=== PATIENT | female | born 1965 | race Caucasian/White ===

== ENCOUNTER 2017-10-21 14:31 | Emergency (ER) | payer OTHER ==
[~2017-10-21 14:31] MED LIST: BENZ100C4 PO; IBU800 PO; LOR5/325 PO; OND4 PO; PER PO; PRED20TA6 PO
[2017-10-21] MEDS ORDERED: methylPREDNIS SUCC 125 MG/2ML IVP ONE (14:40)
[2017-10-21] MEDS ORDERED: FAMOTIDINE(*) 20MG/50ML PREMIX 50 ML IVPB ONE (14:40)
[2017-10-21] MEDS ORDERED: diphenhydrAMINE 50 MG/ML VIAL IVP ONE (14:40)
[2017-10-21] MEDS ORDERED: NS(*) 0.9% 1000 ML BAG 1,000 ML IV ONE (14:40)
--- NOTE | 2017-10-21 14:40 | ER Report ---
History and Physical Time Seen By MD: 14:38 Hx. of Stated Complaint: medication reaction HPI/ROS Patient is a 51-year-old female took a Flexeril tablet approximately an hour prior to arrival began having itching of her head all over body rash at that point she came to the emergency room for help Allergies: Coded Allergies: No Known Drug Allergies (Verified , 10/21/17) Home Meds Active Scripts Diphenhydramine Hcl (BENADRYL) 25 Mg Capsule, 25 MG PO Q6-8H, #30 CAPSULE Prov:DIANNE BUSTAMANTE 10/21/17 Discontinued Reported Medications Benzonatate 100 Mg Cap (TESSALON PERLE 100 MG CAP) 100 Mg Capsule, 100 MG PO TID Y for PRN, #15 CAP TAKE 1 CAPSULE BY MOUTH THREE TIMES A DAY 09/08/14 Discontinued Scripts Prednisone (PREDNISONE) 20 Mg Tablet, 40 MG PO DAILY for 5 Days, #10 TAB Prov:DIANNE BUSTAMANTE 10/21/17 Hydrocodone Bit/Acetaminophen (HYDROCODON-ACETAMINOPHEN 5-325) 1 Each Tablet, 1 EACH PO Q4-6H, #14 Prov:NAHEED GILBERT NP 09/08/14 Prednisone (PREDNISONE) 20 Mg Tablet, 40 MG PO QDAY, #10 TAB-CAP 2 tablets daily until gone. 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 67 Resp 16 B/P (MAP) 124/91 (102) 124/91 146/98 (114) Pulse Ox 95 O2 Delivery Room Air 10/21/17 10/21/17 10/21/17 10/21/17 15:01 15:16 15:30 15:36 Pulse 71 65 58 B/P (MAP) 147/96 (113) Pulse Ox 95 96 96 Intake and Output 10/21/17 10/21/17 10/22/17 15:00 23:00 07:00 Intake Total 50 ml 1000 ml Balance 50 ml 1000 ml Physical Exam General Appearance: The patient is alert, has no immediate need for airway protection and no current signs of toxicity. HEENT Pupils equal and round no injection.throat non reddened, no angioedema Respiratory: Chest is non tender, lungs are clear to auscultation. Cardiac: regular rate and rhythm [ ] Gastrointestinal: Abdomen is soft and non tender, no masses, bowel sounds normal. Musculoskeletal: Neck: Neck is supple and non tender. Extremities have full range of motion and are non tender. Skin: All over red raised body rash with urticaria [DIFFERENTIAL DIAGNOSIS: After history and physical exam differential diagnosis was considered for drug reaction Medical Decision Making ED Course/Re-evaluation ED Course Patient received treatment for anaphylaxis she had 25 mg of Benadryl IV 125 of Solu-Medrol IV and 20 of Pepcid IV her rash dissipated but this will send her home with Benadryl 25 4 times a day for the next 3 days as well as prednisone 40 daily or 5 days she has an EpiPen at home that she is states that his it's within dates and knows how to use it she will follow-up with her primary care physician for allergy testing Re-evaluation Rashes dissipated without after treatment lungs clear to auscultation patient has family to go home with and to watch her tonight Decision to Disposition Date: Oct 21, 2017 Decision to Disposition Time: 15:30 Depart Departure Latest Vital Signs Vital Signs Date Time Temp Pulse Resp B/P (MAP) Pulse Ox O2 Delivery O2 Flow Rate FiO2 10/21/17 15:36 58 96 10/21/17 15:30 147/96 (113) 10/21/17 14:55 97.9 16 Room Air Impression: Primary Impression: Allergic reaction caused by a drug Condition: Improved Disposition: HOME OR SELF-CARE Referrals: FLORI PADILLA DO (PCP) 2 Days New Scripts Diphenhydramine Hcl (BENADRYL) 25 Mg Capsule 25 MG PO Q6-8H, #30 CAPSULE Prov: DIANNE BUSTAMANTE 10/21/17 Patient Instructions: General Allergic Reaction (ED) DIANNE BUSTAMANTE Oct 21, 2017 14:40
[2017-10-21] MEDS ORDERED: DIPH-740 PO (14:56)
[2017-10-21] MEDS ORDERED: PRED20TA6 PO (14:56)
[2017-10-21 15:30] VITALS: BP 147/96
== END 2017-10-21 15:47 | disposition home or self-care (01) ==
LOC: ER 14:32
DX: T48.1X5A Adverse effect of skeletal muscle relaxants [neuromuscular blocking agents], initial encounter (principal)
CPT/HCPCS: 96361; 96374; 96375; 99284; J1200; J2930; J3490; J7030

== ENCOUNTER → 2018-07-29 | Outpatient (CLI) | payer OTHER ==
[~2018-07-29] MED LIST changes: +DIPH-740 PO
--- NOTE | 2018-07-29 14:32 | RADIOLOGY IMAGING REPORT ---
[place] [facility] [place] NAME: Lacie Malik : 1965 MR: [id number] V: [id number] EXAM DATE: ORDERING PHYSICIAN: NAHEED JOHNSON TECHNOLOGIST: [place] [facility] [place] Lacie Malik : 1965 Visit/Account:[id number] Date of Sevice: 07/29/2018 Venous Doppler ultrasound left lower extremity Indication: Left leg pain and redness. Slightly elevated d-dimer. Spinal fusion 19 days previous.. Comparison: None Available Findings: Duplex Doppler and color flow imaging was performed. The common femoral, femoral, and popl iteal veins are all patent and compressible with normal Doppler wave forms. There are normal respons es to augmentation. The posterior tibial and peroneal veins are patent in the calf. The proximal greater saphenous vein is also normal. Subcutaneous tissues are unremarkable. IMPRESSION: 1. No evidence of deep venous thrombosis of the left lower extremity. Report Dictated By: Jarad Fisher at 07/29/2018 2:25 PM Report E-Signed By: Jarad Fisher at 07/29/2018 2:26 PM WSN:[id number]
== END ==
LOC: US 13:20
PROVIDERS: ATTEND Physician Assistant
DX: M79.605 Pain in left leg (principal)

== ENCOUNTER → 2018-07-29 | Outpatient (REF) | payer OTHER | LOC: ZZSTITCHES 09:40 | PROVIDERS: ATTEND Physician Assistant | DX: M79.605 Pain in left leg (principal) | CPT/HCPCS: 85379 ==

== ENCOUNTER 2018-12-10 06:59 | Emergency (ER) | payer OTHER ==
[2018-12-10] MEDS ORDERED: NS(*) 0.9% 1000 ML BAG 1,000 ML IV ONE (07:07)
[2018-12-10] MEDS ORDERED: ASPIRIN 81 MG CHEW CHEW ONE (07:10)
--- NOTE | 2018-12-10 07:17 | EKG ---
FACILITY: [facility] PATIENT NAME: LISA RITCHIE : [id number] MR: [id number] V: [id number] EXAM DATE: ORDERING PHYSICIAN: WOODY BRADFORD TECHNOLOGIST: SEAN Test Reason : CP Blood Pressure : / mmHG Vent. Rate : 067 BPM Atrial Rate : 067 BPM P-R Int : 150 ms QRS Dur : 076 ms QT Int : 428 ms P-R-T Axes : 025 018 021 degrees QTc Int : 452 ms Normal sinus rhythm Normal ECG No previous ECGs available Confirmed by Buddy Norman ([id number]) on 12/10/2018 5:17:07 PM Referred By: SUZETTE Confirmed By:Buddy Davidson
[2018-12-10 07:23] LABS: PLATELET COUNT, AUTOMATED 335 K/uL (150-450)
[2018-12-10] MEDS ORDERED: MAG HYD/AL HYD/SIMETH 30ML UDC PO ONE (07:25)
[2018-12-10] MEDS ORDERED: LIDOCAINE 2% VISC SLN 15ML UDC PO ONE (07:25)
--- NOTE | 2018-12-10 07:33 | ER Report ---
History and Physical Time Seen By MD: 07:33 Hx. of Stated Complaint: PATIENT WAS WOKEN BY CHEST PAIN AROUND 03:30. PAIN RADIATES TO BACK. PATIENT DENIES CARDIAC HISTORY HPI/ROS 53-year-old otherwise healthy female presents to the emergency department with substernal chest pain that started at 0 3:30 today. The pain awoke her from sleep. She admits that last night she was with friends and ate "bar" food that she does not normally eat. She does not smoke. No PE risk factors. No HTN or DM. No fevers, no SOB. Allergies: Coded Allergies: No Known Drug Allergies (Verified , 10/21/17) Home Meds Active Scripts Diphenhydramine Hcl (BENADRYL) 25 Mg Capsule, 25 MG PO Q6-8H, #30 CAPSULE Prov:DIANNE BUSTAMANTE 10/21/17 Reviewed Nurses Notes: Yes Old Medical Records Reviewed: Yes Hx Smoking: No Smoking Status: Never Smoker Exposure to Second Hand Smoke?: No Hx Substance Use Disorder: No Hx Alcohol Use: Yes (RARE) Constitutional Vital Sign - Last 24 Hours 12/10/18 12/10/18 12/10/18 12/10/18 07:02 07:02 07:35 08:00 Temp 98.1 Pulse 81 Resp 24 B/P (MAP) 147/88 (107) 147/88 122/68 (86) 115/71 (86) Pulse Ox 95 O2 Delivery Room Air 12/10/18 12/10/18 12/10/18 12/10/18 08:05 08:30 08:35 08:51 Pulse 67 66 Resp 9 9 B/P (MAP) 121/60 (80) Pulse Ox 95 95 O2 Flow Rate 2.0 12/10/18 12/10/18 09:00 09:05 Pulse 67 Resp 14 B/P (MAP) 115/69 (84) Pulse Ox 94 Physical Exam General Appearance: The patient is alert, has no immediate need for airway protection and no current signs of toxicity. Eyes: Pupils equal and round no injection. Respiratory: Chest is non tender, lungs are clear to auscultation. Cardiac: regular rate and rhythm Gastrointestinal: Abdomen is soft and non tender, no masses, bowel sounds normal. Skin: No rashes or lesions. DIFFERENTIAL DIAGNOSIS: After history and physical exam differential diagnosis was considered for chest pain including but not limited to myocardial ischemia, pericarditis pulmonary embolus, chest wall pain, pleural inflammation and pulmonary infectious causes. Medical Decision Making Data Points Result Diagram: 12/10/18 0719 12/10/18 0719 Laboratory Hematology Test 12/10/18 07:19 12/10/18 09:06 Red Blood Count 4.59 M/uL (4.17-5.56) Mean Corpuscular Volume 92.6 fL (80.0-96.0) Mean Corpuscular Hemoglobin 31.8 pg (26.0-33.0) Mean Corpuscular Hemoglobin Concent 34.4 g/dL (32.0-36.0) Red Cell Distribution Width 12.6 % (11.5-14.5) Mean Platelet Volume 7.6 fL (7.2-11.1) Neutrophils (%) (Auto) 46.3 % (39.4-72.5) Lymphocytes (%) (Auto) 37.7 % (17.6-49.6) Monocytes (%) (Auto) 11.9 % (4.1-12.4) Eosinophils (%) (Auto) 3.1 % (0.4-6.7) Basophils (%) (Auto) 1.0 % (0.3-1.4) Nucleated RBC Relative Count (auto) 0.0 /100WBC Neutrophils # (Auto) 3.1 K/uL (2.0-7.4) Lymphocytes # (Auto) 2.5 K/uL (1.3-3.6) Monocytes # (Auto) 0.8 K/uL (0.3-1.0) Eosinophils # (Auto) 0.2 K/uL (0.0-0.5) Basophils # (Auto) 0.1 K/uL (0.0-0.1) Nucleated RBC Absolute Count (auto) 0.00 K/uL Sodium Level 140 mmol/L (137-145) Potassium Level 3.8 mmol/L (3.5-5.0) Chloride Level 105 mmol/L (98-107) Carbon Dioxide Level 23 mmol/L (22-31) Blood Urea Nitrogen 12 mg/dl (7-18) Creatinine 0.80 mg/dl (0.52-1.04) Glomerular Filtration Rate Calc > 60.0 Random Glucose 94 mg/dl (75-110) Calcium Level 9.5 mg/dl (8.4-10.2) Total Bilirubin 0.3 mg/dl (0.2-1.3) Aspartate Amino Transf (AST/SGOT) 21 U/L (0-35) Alanine Aminotransferase (ALT/SGPT) 22 U/L (0-56) Alkaline Phosphatase 76 U/L (0-126) Total Protein 7.2 g/dl (6.3-8.2) Albumin 4.3 g/dl (3.5-5.0) Troponin I < 0.012 ng/ml Chemistry Test 12/10/18 07:19 12/10/18 09:06 White Blood Count 6.6 k/uL (4.5-11.0) Red Blood Count 4.59 M/uL (4.17-5.56) Hemoglobin 14.6 g/dL (12.0-16.0) Hematocrit 42.5 % (34.0-47.0) Mean Corpuscular Volume 92.6 fL (80.0-96.0) Mean Corpuscular Hemoglobin 31.8 pg (26.0-33.0) Mean Corpuscular Hemoglobin Concent 34.4 g/dL (32.0-36.0) Red Cell Distribution Width 12.6 % (11.5-14.5) Platelet Count 335 K/uL (150-450) Mean Platelet Volume 7.6 fL (7.2-11.1) Neutrophils (%) (Auto) 46.3 % (39.4-72.5) Lymphocytes (%) (Auto) 37.7 % (17.6-49.6) Monocytes (%) (Auto) 11.9 % (4.1-12.4) Eosinophils (%) (Auto) 3.1 % (0.4-6.7) Basophils (%) (Auto) 1.0 % (0.3-1.4) Nucleated RBC Relative Count (auto) 0.0 /100WBC Neutrophils # (Auto) 3.1 K/uL (2.0-7.4) Lymphocytes # (Auto) 2.5 K/uL (1.3-3.6) Monocytes # (Auto) 0.8 K/uL (0.3-1.0) Eosinophils # (Auto) 0.2 K/uL (0.0-0.5) Basophils # (Auto) 0.1 K/uL (0.0-0.1) Nucleated RBC Absolute Count (auto) 0.00 K/uL Glomerular Filtration Rate Calc > 60.0 Calcium Level 9.5 mg/dl (8.4-10.2) Total Bilirubin 0.3 mg/dl (0.2-1.3) Aspartate Amino Transf (AST/SGOT) 21 U/L (0-35) Alanine Aminotransferase (ALT/SGPT) 22 U/L (0-56) Alkaline Phosphatase 76 U/L (0-126) Total Protein 7.2 g/dl (6.3-8.2) Albumin 4.3 g/dl (3.5-5.0) Troponin I < 0.012 ng/ml ED Course/Re-evaluation ED Course Very low risk for CAD. Normal EKG and 2 normal troponins after 7 hours of chest pain. Pain relieved with Toradol. I do not think her chest pain is secondary to cardiac ischemia. No PE risk factors. It is likely either chest wall pain or secondary to eating fried food last night. I counseled her to follow-up with Dr. Gaona this week, and I encouraged her to get an outpatient stress test in the next 1-2 weeks. I do not think she needs any further acute testing to evaluate for CAD. Decision to Disposition Date: Dec 10, 2018 Decision to Disposition Time: 09:33 Depart Departure Latest Vital Signs Vital Signs Date Time Temp Pulse Resp B/P (MAP) Pulse Ox O2 Delivery O2 Flow Rate FiO2 12/10/18 09:05 67 14 94 12/10/18 09:00 115/69 (84) 12/10/18 08:51 2.0 12/10/18 07:02 98.1 Room Air Impression: Primary Impression: Costochondral chest pain Condition: Improved Disposition: HOME OR SELF-CARE Referrals: FLORI GAONA DO (PCP) Patient Instructions: Chest Wall Pain (ED) Additional Instructions: Follow up with your PCM this week, and schedule an outpt. stress test in the next 1-2 weeks. Return to the ED if your symptoms worsen. WOODY BRADFORD MD Dec 10, 2018 07:33
--- NOTE | 2018-12-10 07:50 | RADIOLOGY IMAGING REPORT ---
FACILITY: [facility] - [place] PATIENT NAME: Lacie Malik : 1965 MR: [id number] V: [id number] EXAM DATE: ORDERING PHYSICIAN: WOODY BRADFORD TECHNOLOGIST: Location: [facility] Patient: Lacie Malik : 1965 Visit/Account:[id number] Date of Sevice: 12/10/2018 CHEST: Indication: Chest pain. Technique: Frontal and lateral views were obtained. Comparison: 09/08/2014 Skeletal and soft tissue structures: There are mild degenerative changes in the thoracic spine. No ac round valley skeletal deformity is identified. Heart and mediastinum: Within normal limits. Lung rivera: Well-expanded and clear. Pleural spaces: Unremarkable. Impression: No acute process or significant change. Report Dictated By: Darian Jade MD at 12/10/2018 7:45 AM Report E-Signed By: Darian Jade MD at 12/10/2018 7:46 AM WSN:[id number]
[2018-12-10] MEDS ORDERED: KETOROLAC 30 MG/ML VIAL IVP ONE (08:25)
[2018-12-10] MEDS ORDERED: PANTOPRAZOLE SOD(*)40 MG VIAL 80 MG in NS(*) 0.9% 100 ML BAG 100 ML IVPB ONE (08:25)
[2018-12-10] MEDS ORDERED: PANTOPRAZOLE SOD 40 MG IV VIAL ONE (08:28)
[2018-12-10 09:00] VITALS: BP 115/69
== END 2018-12-10 09:41 | disposition home or self-care (01) ==
LOC: ER 07:44
DX: R07.1 Chest pain on breathing (principal)
CPT/HCPCS: 71046; 84484; 85025; 93005; 96361; 96365; 96375; 99284; C9113; J1885; J7030; J7050; 82040; 82247; 82310; 82374; 82435; 82565; 82947; 84075; 84132; 84155; 84295; 84450; 84460; 84520